=== PATIENT | male | born 1960 | race Two or more races ===

== ENCOUNTER 2021-02-05 06:30 | Day surgery (SDC) | payer OTHER | END 2021-02-05 11:20 | disposition home or self-care (01) | LOC: AMB-ENDOS 06:30 | PROVIDERS: ATTEND Surgery | DX: K62.89 Other specified diseases of anus and rectum (principal); K64.8 Other hemorrhoids; Z12.11 Encounter for screening for malignant neoplasm of colon; Z20.822 Contact with and (suspected) exposure to COVID-19 ==

== ENCOUNTER 2021-03-03 10:30 | Inpatient (IN) | payer OTHER ==
[~2021-03-03] VITALS: Ht 160 cm; Wt 81.6 kg
[2021-03-04] MEDS ORDERED: RESTORIL30 M1 PO (08:40)
[2021-03-04] MEDS ORDERED: ZESTRIL10 M1 PO (08:41)
[2021-03-04] MEDS ORDERED: NORVASC2.5 M1 PO (08:41)
[2021-03-04] MEDS ORDERED: CLONAZEPAM1 MG PO (08:41)
[2021-03-04] MEDS ORDERED: BENADRYL25 MG PO (08:42)
[2021-03-04] MEDS ORDERED: FOLIC ACID0.8 M1 PO (08:42)
[2021-03-04] MEDS ORDERED: CALCIUM500 M2 PO (08:42)
[2021-03-04] MEDS ORDERED: GEODON40 MG PO (08:43)
[2021-03-07] MEDS ORDERED: HYDROCHLOROTH12.5 MG (08:20)
[2021-03-07] MEDS ORDERED: BANOPHEN25 MG (08:20)
[2021-03-10] MEDS ORDERED: PERCOCET 5-3251 EACH PO (08:59)
== END 2021-03-10 09:29 | disposition home or self-care (01) | DRG 330 ==
LOC: SURG 03-07 05:50 → O/R 03-07 05:50 → SURH 03-07 07:00 → SURG 03-07 10:52
PROVIDERS: ADMIT Surgery; ATTEND Surgery
PROC: 0DTN4ZZ Resection of Sigmoid Colon, Percutaneous Endoscopic Approach (ICD-10-PCS; 2021-03-07)
PROC: 3E0F7SF Introduction of Other Gas into Respiratory Tract, Via Natural or Artificial Opening (ICD-10-PCS; 2021-03-07)
PROC: 0DTP4ZZ Resection of Rectum, Percutaneous Endoscopic Approach (ICD-10-PCS; principal; 2021-03-07 07:00)
DX: K57.30 Diverticulosis of large intestine without perforation or abscess without bleeding (principal); K56.690 Other partial intestinal obstruction; R10.32 Left lower quadrant pain; R19.7 Diarrhea, unspecified